=== PATIENT | male | born 1950 | race Caucasian/White ===

== ENCOUNTER 2024-01-24 13:31 | Outpatient (CLI) | payer MEDICARE ==
[2024-01-24 14:29] LABS: #Basophils 0.1 10x3/uL (0.0-0.2); #Eosinphils 0.1 10x3/uL (0.0-0.5); #Monocytes 0.6 10x3/uL (0.0-1.1); #Neutrophils 5.5 10x3/uL (1.5-8.4); %Basophils 0.8 % (0.0-2.0); %Eosinophils 1.2 % (0.0-6.0); %Lymphocytes 19.4 % (18.0-47.0); %Monocytes 7.9 % (0.0-10.0); %Neutrophils 70.6 % (40.0-75.0); Hematocrit 46.5 % (38.8-50.0); Mean Corpuscular HGB CONC 34.4 g/dL (32.0-36.0); Mean Corpuscular Hemoglobin 31.7 pg (27.0-33.0); Mean Corpuscular Volume 92.3 fl (81.2-95.1); Mean Platelet Volume 9.1 fl (7.4-10.4); Platelet Count 220 10x3/uL (150-450); RBC Distribution Width 13.3 % (11.5-14.5); Red Blood Cell (RBC) Count 5.04 10x6/uL (4.32-5.72); White Blood Cell (WBC) Count 7.8 10x3/uL (3.5-10.5)
[2024-01-24 14:51] LABS: ALT (SGPT) 29 U/L (8-55); AST (SGOT) 29 U/L (5-34); Albumin 4.5 g/dL (3.4-4.8); Alkaline Phosphatase 59 U/L (40-110); Anion Gap 13 mmol/L (10-20); BUN (Urea Nitrogen) 17 mg/dL (8.4-25.7); Bilirubin, Total 0.5 mg/dL (0.2-1.2); Calc. Creatinine Clearance 0 mL/min (70-130); Calcium 9.4 mg/dL (7.8-10.44); Carbon Dioxide 23 mmol/L (23-31); Chloride 107 mmol/L (98-107); Estimated GFR 69; Globulin 2.3 g/dL (2.4-3.5); Glucose 113 mg/dL (83-110); Potassium 4.4 mmol/L (3.5-5.1); Protein, Total 6.8 g/dL (5.8-8.1); Sodium 139 mmol/L (136-145)
== END 2024-01-24 13:32 | disposition home or self-care (01) ==
LOC: LABBT 13:31
PROVIDERS: ATTEND Surgery
DX: Z01.818 Encounter for other preprocedural examination (principal); K40.90 Unilateral inguinal hernia, without obstruction or gangrene, not specified as recurrent
CPT/HCPCS: 80053; 85025; 93005; 93010

== ENCOUNTER 2024-01-26 05:53 | Day surgery (SDC) | payer MEDICARE ==
[2024-01-24 14:13] VITALS: BMI 35.1
[2024-01-26] MEDS ORDERED: PROPOFOL 20 ML ONE (06:24)
[2024-01-26] MEDS ORDERED: fentaNYL 50 mcg/mL 1 mL Vial ONE (06:24)
[2024-01-26] MEDS ORDERED: Lidocaine 1% PF 5 ML VIAL ONE (06:25)
[2024-01-26] MEDS ORDERED: Ondansetron PF 4 MG/2 ML Vial ONE (06:25)
[2024-01-26] MEDS ORDERED: Dexamethasone 4 mg/ml Vial ONE (06:25)
[2024-01-26] MEDS ORDERED: EPINEPHrine 1 MG/ML VIAL ONE (06:37)
[2024-01-26] MEDS ORDERED: Bupivacaine 0.25% HCL 30 ML VIAL ONE (06:37)
[2024-01-26] MEDS ORDERED: CEFAZOLIN 2 GM VIAL ONE (06:44)
[2024-01-26] MEDS ORDERED: Sodium Chloride 0.9% 100 ML ONE (06:44)
== END 2024-01-26 12:05 | disposition home or self-care (01) ==
LOC: SDC 05:53
PROVIDERS: ATTEND Surgery
PROC: 0YU50JZ Supplement Right Inguinal Region with Synthetic Substitute, Open Approach (ICD-10-PCS; principal; 2024-01-26)
DX: K40.30 Unilateral inguinal hernia, with obstruction, without gangrene, not specified as recurrent (principal); E03.9 Hypothyroidism, unspecified; E78.5 Hyperlipidemia, unspecified; F17.290 Nicotine dependence, other tobacco product, uncomplicated; Z79.890 Hormone replacement therapy; Z79.899 Other long term (current) drug therapy
CPT/HCPCS: 49507; A6258; C1781; J0171; J3010; J0665; J1100; J2405; J2704; J3490